=== PATIENT | female | born 1990 | race Caucasian/White ===

== ENCOUNTER → 2017-05-27 | Outpatient (CLI) | payer BC ==
[~2017-05-27] MED LIST: PERC5TAB6 PO
== END ==
LOC: M SMT 08:57
PROVIDERS: ATTEND Advanced Practice Midwife
DX: Z13.79 Encounter for other screening for genetic and chromosomal anomalies (principal)

== ENCOUNTER → 2017-07-01 | Outpatient (CLI) | payer BC ==
[~2017-07-01] MED LIST changes: +PERC5TAB12 PO; -PERC5TAB6 PO
--- NOTE | 2017-07-02 06:29 | REP ---
Clinical: Anatomical evaluation. Comparison: None . Findings: Examination demonstrates a single live intrauterine in breech presentation. motion is identified by technologist. Placenta is noted posterior and grade air zero without evidence for placenta previa or abruption. Amniotic fluid volume is normal. Cervix measures 3.9 cm in length and appears closed. No evidence for nuchal cord. Gestational age by LMP 19 weeks 6 days with IRINA 11/19/2017 . Gestational age by current measurements 19 weeks 4 days with IRINA 11/21/2017 . FHR equals 153 beats per minute. BPD 4.6 20 weeks 0 days HC 16.7 19 weeks 0 days AC 14.4 19 weeks 5 days FL 3.2 20 weeks 1 day HL 3.2 20 weeks 4 days HC/AC ratio 1.16 Estimated weight 317 grams ( 45th percentile). Anatomical assessment demonstrates normal structures including cranium, choroid plexus, cavum, cerebellum/posterior fossa, nose and lips, lungs, diaphragm, stomach, cord insertion/three-vessel cord, kidneys/bladder, spine, and upper extremities. Limited evaluation of the facial profile, heart/ventricular outflow tracts and small bilateral choroid plexus cysts noted. Impression: Single live intrauterine in breech presentation demonstrating appropriate interval growth. Anatomical limitations as described above. Otherwise unremarkable examination. Signed by Jose Jones MD 07/02/2017 06:21 A
== END ==
LOC: M SMT 12:55
PROVIDERS: ATTEND Advanced Practice Midwife
DX: Z36 Encounter for antenatal screening of mother (principal); Z3A.19 19 weeks gestation of pregnancy

== ENCOUNTER → 2017-08-05 | Outpatient (CLI) | payer BC ==
--- NOTE | 2017-08-05 15:30 | REP ---
Clinical: Anatomical re-evaluation. Comparison: 07/01/2017 . Findings: Examination demonstrates a single live intrauterine in breech presentation. motion is identified by technologist. Placenta is noted posteriorly and grade I without evidence for placenta previa or abruption. Amniotic fluid volume is normal. Cervix measures 4.0 cm in length and appears closed. Nuchal cord is appreciated. Gestational age by LMP 24 weeks 6 days with IRINA 11/19/2017 . Gestational age by current measurements 24 weeks 3 days with IRINA 11/22/2017 . FHR equals 147 beats per minute. Estimated weight 748 grams (44th percentile). Anatomical assessment demonstrates normal structures including cranium, choroid plexus, cavum, cerebellum/posterior fossa, facial features, lungs, four-chamber heart/ventricular outflow tracts, diaphragm, stomach, cord insertion/three-vessel cord, kidneys/bladder, spine, and extremities. Impression: Single live intrauterine in breech presentation demonstrating appropriate interval growth. Nuchal cord noted. Anatomical assessment is complete and normal. Signed by Jose Jones MD 08/05/2017 03:21 P
== END ==
LOC: M SMT 14:17
PROVIDERS: ATTEND Advanced Practice Midwife
DX: Z36 Encounter for antenatal screening of mother (principal); Z3A.24 24 weeks gestation of pregnancy

== ENCOUNTER → 2017-08-26 | Outpatient (CLI) | payer BC ==
[2017-08-26 13:55] LABS: MEAN CORPUSCULAR HEMOGLOBIN 29.9 pg (27.0-33.0); MEAN CORPUSCULAR HGB CONC 32.2 g/dl (32.0-36.5); MEAN CORPUSCULAR VOLUME 92.6 fl (80.0-96.0); RED CELL DISTRIBUTION WIDTH 12.1 % (11.5-14.5); WHITE BLOOD COUNT 10.6 10^3/uL (4.0-10.0)
== END ==
LOC: M SMT 09:54
PROVIDERS: ATTEND Advanced Practice Midwife
DX: Z34.82 Encounter for supervision of other normal pregnancy, second trimester (principal)

== ENCOUNTER → 2017-09-17 | Outpatient (CLI) | payer BC ==
--- NOTE | 2017-09-18 07:54 | REP ---
Clinical: Size less than dates . Comparison: 08/05/2017 . Findings: Examination demonstrates a single live intrauterine in cephalic presentation. motion is identified by technologist. Placenta is noted posterior left lateral and grade zero without evidence for placenta previa or abruption. Amniotic fluid volume is normal. Cervix measures 3.2 cm in length and appears closed. No evidence for nuchal cord. Gestational age by LMP 31 weeks 0 days with IRINA 11/19/2017 . Gestational age by current measurements 29 weeks 0 days with IRINA 12/03/2017 . FHR equals 141 beats per minute. BPD 7.3 cm 29 weeks 1 day HC 26.4 cm 28 weeks 5 days AC 25.1 cm 29 weeks 2 days FL 5.8 cm 30 weeks 1 day HL 5.2 cm 30 weeks 2 days HC/AC ratio 1.05 Estimated weight 1405 grams ( 12th percentile). New line amniotic fluid index equals 8.6 cm (8.8 - 23.8). Impression: 1. Single live intrauterine in cephalic presentation. 2. Amniotic fluid volume is lower limits of normal. 3. Gross is mildly less than expected although falls within normal range. Signed by Jose Jones MD 09/18/2017 07:46 A
== END ==
LOC: M SMT 09:18
PROVIDERS: ATTEND Specialist
DX: O36.5931 Maternal care for other known or suspected poor fetal growth, third trimester, fetus 1 (principal); Z3A.29 29 weeks gestation of pregnancy

== ENCOUNTER → 2017-10-14 | Outpatient (CLI) | payer BC ==
--- NOTE | 2017-10-14 16:47 | REP ---
Clinical: Growth re-evaluation. Comparison: 09/17/2017 . Findings: Examination demonstrates a single live intrauterine in cephalic presentation. motion is identified by technologist. Placenta is noted posterior left lateral and grade I without evidence for placenta previa or abruption. Amniotic fluid volume is low normal. Cervix measures 2.6 cm in length and appears closed. No evidence for nuchal cord. Gestational age by LMP 34 weeks 6 days with IRINA 11/19/2017 . Gestational age by current measurements 31 weeks 3 days with IRINA 12/13/2017. FHR equals 145 beats per minute. BPD 7.8 cm 31 weeks 3 days HC 27.8 cm 30 weeks 2 days AC 26.8 cm 30 weeks 6 days FL 6.3 cm 32 weeks 3 days HL 5.6 cm 32 weeks 3 days HC/AC ratio 1.04 Estimated weight 1746 grams (less than 3rd percentile). Amniotic fluid index equals 6.3 cm (7.9 - 24.9). Umbilical cord SD ratio equals 2.51 (2.00 - 3.00). Impression: 1. Single live advanced gestation in cephalic presentation. Estimated weight and age by biometrical measurements is less than expected and requires clinical correlation. 2. Amniotic fluid volume is lower limits of normal. Signed by Jose Jones MD 10/14/2017 04:39 P
== END ==
LOC: M RAD 15:05
PROVIDERS: ATTEND Obstetrics & Gynecology
DX: Z36.89 Encounter for other specified antenatal screening (principal); Z3A.31 31 weeks gestation of pregnancy

== ENCOUNTER → 2017-10-21 | Outpatient (REF) | payer BC ==
[~2017-10-21] MED LIST changes: +CLEO1GEL TOP; +ERYT2SO TOP; +PRENTAB9 PO; +[UNRECOGNIZED DRUG - OTHER] TOP
== END ==
LOC: M LAB REF 17:09
PROVIDERS: ATTEND Obstetrics & Gynecology
DX: Z34.83 Encounter for supervision of other normal pregnancy, third trimester (principal); Z3A.00 Weeks of gestation of pregnancy not specified

== ENCOUNTER 2017-10-24 07:07 | Outpatient (CLI) | payer BC ==
[~2017-10-24] VITALS: Ht 162.6 cm; Wt 63.8 kg
[~2017-10-24 07:07] MED LIST changes: -CLEO1GEL TOP; -ERYT2SO TOP; -PRENTAB9 PO; -[UNRECOGNIZED DRUG - OTHER] TOP
[2017-10-24 07:23] VITALS: BP 110/72
[2017-10-24 09:14] VITALS: BP 111/65
--- NOTE | 2017-10-24 09:26 | REP ---
Clinical: well-being. Biophysical profile. . Comparison: 10/14/2017 . Findings: Examination demonstrates a single live advanced intrauterine in cephalic presentation. motion is identified by technologist. Placenta is noted posterior lateral towards the left side and grade III without evidence for placenta previa or abruption. Amniotic fluid volume is normal. No evidence for nuchal cord. Gestational age by LMP 36 weeks 2 days with IRINA 11/19/2017 . Gestational age by first US 36 weeks 0 days with IRINA 11/21/2017 . FHR equals 131 beats per minute. BPP equals 8/8. Amniotic fluid index equals 7.2 cm (7.6 724.8). Umbilical cord SD ratio equals 2.85 (1.8 - 2.8). Impression: Single live intrauterine in cephalic presentation. Biophysical profile score equals 8/8. Amniotic fluid index is lower limits of normal. Signed by Jose Jones MD 10/24/2017 09:16 A
[2017-10-24] MEDS ORDERED: BETAMETHASONE SOLUSPAN 6MG/ML INJ 5ML (J0702) IM SCH (10:00)
[2017-10-25] MEDS ORDERED: PRENTAB9 PO (10:27)
== END 2017-10-24 10:00 | disposition home or self-care (01) ==
LOC: M LDO 07:07
PROVIDERS: ATTEND Advanced Practice Midwife
DX: O36.5931 Maternal care for other known or suspected poor fetal growth, third trimester, fetus 1 (principal); Z3A.36 36 weeks gestation of pregnancy
CPT/HCPCS: 59025; 76815; 76819; 76820; 96372; J0702

== ENCOUNTER 2017-10-25 10:08 | Outpatient (CLI) | payer BC ==
[~2017-10-25] VITALS: Ht 162.6 cm; Wt 63.3 kg
[2017-10-25 10:22] VITALS: BP 120/75
[2017-10-25] MEDS ORDERED: PRENTAB9 PO (10:27)
[2017-10-25] MEDS ORDERED: BETAMETHASONE SOLUSPAN 6MG/ML INJ 5ML (J0702) IM SCH (11:00)
== END 2017-10-25 10:55 | disposition home or self-care (01) ==
LOC: M LDO 10:08
PROVIDERS: ATTEND Advanced Practice Midwife
DX: O26.893 Other specified pregnancy related conditions, third trimester (principal); O62.0 Primary inadequate contractions; O26.853 Spotting complicating pregnancy, third trimester; Z3A.36 36 weeks gestation of pregnancy
CPT/HCPCS: 96372; J0702

== ENCOUNTER 2017-10-29 07:19 | Inpatient (IN) | payer BC ==
[2017-10-29] VITALS (39 sets, daily range): BP systolic 89–132; BP diastolic 54–84
[~2017-10-29] VITALS: Ht 162.6 cm; Wt 63.8 kg
[~2017-10-29 07:19] MED LIST changes: +PRENTAB9 PO
[2017-10-29] MEDS ORDERED: CLEO1GEL TOP (08:00)
[2017-10-29 08:33] LABS: MEAN CORPUSCULAR HEMOGLOBIN 30.3 pg (27.0-33.0); MEAN CORPUSCULAR HGB CONC 33.7 g/dl (32.0-36.5); MEAN CORPUSCULAR VOLUME 89.8 fl (80.0-96.0); PLATELET COUNT, AUTOMATED 317 10^3/uL (150-450); RED CELL DISTRIBUTION WIDTH 12.4 % (11.5-14.5); WHITE BLOOD COUNT 13.7 10^3/uL (4.0-10.0)
[2017-10-29] MEDS ORDERED: miSOPROStol 50 MCG 1/2 TAB (S0191) PO SCH (09:00)
[2017-10-29] MEDS ORDERED: miSOPROStol 50 MCG 1/2 TAB (S0191) SL SCH (09:00)
[2017-10-29] MEDS ORDERED: [UNRECOGNIZED DRUG - OTHER] TOP (09:22)
[2017-10-29] MEDS ORDERED: ERYT2SO TOP (09:26)
--- NOTE | 2017-10-29 09:31 | HPE ---
DATE OF ADMISSION: 10/29/2017 HISTORY: 26-year-old, (G) 1, para (P) 0, female at 37 and 0/7 weeks gestation by last menstrual period (LMP), consistent with 10 week ultrasound and expected date of confinement (EDC) of 11/19/2017 who presents for labor induction. The indication for induction is severe intrauterine growth retardation (IUGR) with borderline oligohydramnios. COURSE: The patient initiated care at 10 weeks gestation on 04/29/2017. Her blood pressure was 132/70. Weight was 120 pounds. She had a growth ultrasound for size less than dates on 09/17/2017 when she was 31 weeks gestation. She was at the 12th percentile by ultrasound measurement. Followup ultrasound for growth on 10/14/2017 at 34 weeks showed growth less than 3rd percentile. The amniotic fluid volume was 6.3. testing was reassuring. The patient received steroids for lung maturity at 36 weeks. MEDICAL HISTORY: Noncontributory. SURGICAL HISTORY: 1. Diagnostic laparoscopy for endometriosis. 2. No surgery. ALLERGIES: None. SOCIAL HISTORY: The patient is . She denies cigarettes, alcohol or drug use. Lives in [place], [place]. FAMILY HISTORY: The father of the baby has been diagnosed with MPS disorder which is an autosomal recessive disorder associated with glycogen storage disease. PHYSICAL EXAMINATION: Blood pressure 120/74. She is in no apparent distress. Head and Neck Exam: Normal. Lungs: Clear. Heart: Regular rate and rhythm. Abdomen: Nontender. Gravid. heart tones Category 1. Contractions rare. Sterile Vaginal Exam: 1 cm, 70% effaced, -2 station, vertex, soft, posterior. Extremities: Nontender with trace edema. LABORATORIES: Blood type A positive. Rubella immune. RPR nonreactive. Hepatitis B and C negative. Diabetes screen 117. GBS negative. ASSESSMENT: 26-year-old, G1, P0, at 37 and 0/7 weeks gestation with severe IUGR and borderline oligohydramnios who presents for labor induction. Risks of induction were discussed. Patient was admitted on 10/29/2017.
[2017-10-29] MEDS ORDERED: LR 1,000 ML IV SCH (13:44)
[2017-10-29] MEDS ORDERED: OXYTOCIN DRIP 30 UNITS in APPROPRIATE DILUENT 1 EA IV SCH (13:45)
[2017-10-29] MEDS ORDERED: FENTANYL 2MCG/ML ROPIVACAINE 0.2% IN 0.9% NACL 200ML IVBAG As Ordered ONE (21:24)
[2017-10-29] MEDS ORDERED: NALOXONE INJ 0.4 MG/1 ML VIAL (J2310) IV PRN (22:45)
[2017-10-29] MEDS ORDERED: REFRIGERATOR IV KEYS XX PRN (22:45)
[2017-10-29] MEDS ORDERED: diphenhydrAMINE INJ 50MG/ML VIAL (J1200) IV PRN (22:45)
[2017-10-29] MEDS ORDERED: ePHEDrine SULFATE 25 MG/5 ML(5MG/ML) SYRINGE IV PRN (22:45)
[2017-10-29] MEDS ORDERED: EPIDURAL COMMENT XX SCH (22:45)
[2017-10-29] MEDS ORDERED: ONDANSETRON 4MG/2ML VIAL (J2405) IV PRN (22:45)
[2017-10-29] MEDS ORDERED: EPIDURAL/PCA KEYS XX PRN (22:45)
[2017-10-29] MEDS ORDERED: LACTATED RINGER'S 1000 ML IV PRN (22:45)
[2017-10-29] MEDS ORDERED: FENTANYL/ROPIVACAINE/NACL BAG 200 ML EPIDURAL SCH (22:45)
[2017-10-30] VITALS (19 sets, daily range): BP systolic 104–139; BP diastolic 60–85
[2017-10-30] MEDS ORDERED: METHYLERGONOVINE MALEATE 0.2 MG/ML VIAL (J2210) As Ordered ONE (05:30)
[2017-10-30] MEDS ORDERED: DOCUSATE SODIUM 100 MG CAP PO PRN (06:15)
[2017-10-30] MEDS ORDERED: miSOPROStol 200 MCG TAB (S0191) PR ONE (06:15)
[2017-10-30] MEDS ORDERED: ACETAMINOPHEN 500 MG TAB PO PRN (06:15)
[2017-10-30] MEDS ORDERED: RHOGAM 300 MCG (1500 IU) INJ (J2790) IM SCH (06:15)
[2017-10-30] MEDS ORDERED: MEASLES,MUMPS,RUBELLA VACCINE INJ (MMR-II) (90707) SC SCH (06:15)
[2017-10-30] MEDS ORDERED: DIBUCAINE 1% OINTMENT 30GM TOP PRN (06:15)
[2017-10-30] MEDS ORDERED: ONDANSETRON 4MG/2ML VIAL (J2405) IV PRN (06:15)
[2017-10-30] MEDS ORDERED: METHYLERGONOVINE MALEATE 0.2 MG TAB PO PRN (06:15)
[2017-10-30] MEDS ORDERED: OXYTOCIN DRIP 30 UNITS in APPROPRIATE DILUENT 1 EA IV ONE (06:15)
[2017-10-30] MEDS ORDERED: METHYLERGONOVINE MALEATE 0.2 MG/ML VIAL (J2210) IM ONE (07:00)
[2017-10-30] MEDS: IBUPROFEN 800 MG TAB PO PRN ×2 (07:20→16:10)
[2017-10-30] MEDS: PRENATAL VITAMINS CHEWABLE TABLET PO SCH (07:20)
[2017-10-30] MEDS ORDERED: PERCOCET 5MG/325MG TAB PO PRN (09:15)
--- NOTE | 2017-10-30 09:20 | DN ---
DATE: 10/30/2017 PREDELIVERY DIAGNOSIS: 37 weeks intrauterine growth restriction (IUGR). POSTDELIVERY DIAGNOSIS: Delivered. PROCEDURE: Spontaneous vaginal delivery. ELEMENTARY LIBRARIAN: Dr. Jhonathan Booker. ANESTHESIA: Epidural. ESTIMATED BLOOD LOSS: 500 mL. FINDINGS: 4 pounds 10 ounces female, scores 8 and 9. DELIVERY SUMMARY: After 15-20 minutes second stage, the patient had spontaneously delivery of a 4 pound 10 ounce female with scores of 8 and 9 under epidural anesthesia. There was no nuchal cord. The cried instantly and was handed to the mother. Cord was doubly clamped and cut. Placenta delivered spontaneously and appeared to be intact. Moderate vaginal atrophy was encountered. This was relived with intravenous (IV) Pitocin, fundal massage, as well as one dose of intramuscular (IM) Methergine at 800 mcg and Cytotec per rectum. Retractor was used to visualize the upper vagina and cervix to check for any lacerations or bleeding sites that may have missed. Bleeding improved over time. A first-degree perineal laceration was repaired with 3-0 chromic in the usual fashion. First-degree left labial laceration was repaired with 3-0 chromic. Sponge and needle counts were correct.
[2017-10-30] MEDS: PERCOCET 5MG/325MG TAB PO PRN ×2 (12:52→18:26)
[2017-10-31 06:00] VITALS: BP 119/72
[2017-10-31] MEDS: PRENATAL VITAMINS CHEWABLE TABLET PO SCH (07:46)
[2017-10-31] MEDS: IBUPROFEN 800 MG TAB PO PRN ×2 (13:19→22:20)
[2017-10-31 18:26] VITALS: BP 123/71
[2017-11-01 06:02] VITALS: BP 107/57
[2017-11-01] MEDS: IBUPROFEN 800 MG TAB PO PRN (06:30)
[2017-11-01] MEDS: PRENATAL VITAMINS CHEWABLE TABLET PO SCH (08:46)
[2017-11-01] MEDS ORDERED: COLA100C5 PO (10:04)
[2017-11-01] MEDS ORDERED: IBUP-1114 PO (10:04)
== END 2017-11-01 12:10 | disposition home or self-care (01) | DRG 560 ==
LOC: M LDI 07:19 → M OBS 10-30 09:35
PROVIDERS: ADMIT Obstetrics & Gynecology; ATTEND Obstetrics & Gynecology
PROC: 3E0DXGC Introduction of Other Therapeutic Substance into Mouth and Pharynx, External Approach (ICD-10-PCS; 2017-10-29)
PROC: 10E0XZZ Delivery of Products of Conception, External Approach (ICD-10-PCS; principal; 2017-10-30)
PROC: 0HQ9XZZ Repair Perineum Skin, External Approach (ICD-10-PCS; 2017-10-30)
DX: O41.03X0 Oligohydramnios, third trimester, not applicable or unspecified (principal); O36.5930 Maternal care for other known or suspected poor fetal growth, third trimester, not applicable or unspecified; Z37.0 Single live birth; Z3A.37 37 weeks gestation of pregnancy; O70.0 First degree perineal laceration during delivery

== ENCOUNTER → 2018-08-24 | Outpatient (CLI) | payer BC ==
[2018-08-24 17:49] LABS: BASO # 0.1 10^3/uL (0.0-0.2); BASO % 0.9 % (0.0-1.0); EOS # 0.5 10^3/uL (0.0-0.50); EOS % 4.7 % (0.0-3.0); HEMATOCRIT 40.2 % (36.0-47.0); HEMOGLOBIN 13.2 g/dl (12.0-15.5); IMMATURE GRANULOCYTE % 0.3 % (0-3.0); LYMPH # 1.3 10^3/uL (1.5-6.5); LYMPH % 14.1 % (24.0-44.0); MEAN CORPUSCULAR HEMOGLOBIN 29.1 pg (27.0-33.0); MEAN CORPUSCULAR HGB CONC 32.8 g/dl (32.0-36.5); MEAN CORPUSCULAR VOLUME 88.5 fl (80.0-96.0); MONO # 0.5 10^3/uL (0.0-0.8); MONO % 4.8 % (0.0-5.0); NEUTROPHILS # 7.2 10^3/uL (1.8-7.7); NEUTROPHILS % 75.2 % (36.0-66.0); PLATELET COUNT, AUTOMATED 342 10^3/uL (150-450); RED BLOOD COUNT 4.54 10^6/uL (4.00-5.40); RED CELL DISTRIBUTION WIDTH 12.4 % (11.5-14.5); WHITE BLOOD COUNT 9.5 10^3/uL (4.0-10.0)
[2018-08-24 20:38] LABS: CHLAMYDIA DNA AMPLIFICATION NEGATIVE (NEGATIVE); GC DNA AMPLIFICATION NEGATIVE (NEGATIVE)
[2018-08-26 10:15] LABS: HBsAg Prenatal NEGATIVE (NEGATIVE); HIV 1&2 SCREEN CENTAUR NEGATIVE (NEGATIVE); RUBELLA IgG QUALITATIVE IMMUNE (IMMUNE)
[2018-08-26 10:15] LABS: HEPATITIS C VIRUS ABY INDEX 0.2 INDEX (<0.8)
== END ==
LOC: M SMT 11:47
DX: Z34.81 Encounter for supervision of other normal pregnancy, first trimester (principal); Z3A.12 12 weeks gestation of pregnancy
CPT/HCPCS: 86762

== ENCOUNTER → 2018-10-26 | Outpatient (CLI) | payer BC | LOC: M SMT 10:46 | DX: Z34.82 Encounter for supervision of other normal pregnancy, second trimester (principal); Z3A.21 21 weeks gestation of pregnancy | CPT/HCPCS: 76811 ==

== ENCOUNTER → 2018-12-07 | Outpatient (CLI) | payer BC ==
[~2018-12-07] MED LIST changes: +CLEO1GEL TOP; +COLA100C5 PO; +ERYT2SO TOP; +IBUP-1114 PO; +[UNRECOGNIZED DRUG - OTHER] TOP
[2018-12-07 18:54] LABS: HEMATOCRIT 35.3 % (36.0-47.0); HEMOGLOBIN 11.2 g/dl (12.0-15.5); MEAN CORPUSCULAR HEMOGLOBIN 29.6 pg (27.0-33.0); MEAN CORPUSCULAR HGB CONC 31.7 g/dl (32.0-36.5); MEAN CORPUSCULAR VOLUME 93.1 fl (80.0-96.0); PLATELET COUNT, AUTOMATED 305 10^3/uL (150-450); RED BLOOD COUNT 3.79 10^6/uL (4.00-5.40)
--- NOTE | 2018-12-08 03:43 | REP ---
Clinical: Anatomical evaluation. Comparison: 10/26/2018 . Findings: Examination demonstrates a single live intrauterine in cephalic presentation. motion is identified by technologist. Placenta is noted anterior and grade grade 1 without evidence for placenta previa or abruption. Amniotic fluid volume is normal. Cervix measures 4.8 cm in length and appears closed. No evidence for nuchal cord. Gestational age by LMP 27 weeks 4 days with IRINA 03/04/2019 . Gestational age by current measurements 25 weeks 2 days with IRINA 03/20/2019 . FHR equals 139 beats per minute. Estimated weight 860 grams ( 45th percentile). Anatomical assessment demonstrates normal structures including cranium, choroid plexus, cavum, cerebellum/posterior fossa, facial features, lungs, four-chamber heart/ventricular outflow tracts, diaphragm, stomach, cord insertion/three-vessel cord, kidneys/bladder, spine, and extremities. Impression: Single live intrauterine in cephalic presentation demonstrating appropriate interval growth. Anatomical assessment is complete and normal. Electronically Signed by Jose Jones MD 12/08/2018 03:34 A
== END ==
LOC: M SMT 11:00
PROVIDERS: ATTEND Advanced Practice Midwife
DX: Z36.9 Encounter for antenatal screening, unspecified (principal); Z3A.25 25 weeks gestation of pregnancy

== ENCOUNTER → 2019-01-18 | Outpatient (CLI) | payer BC ==
--- NOTE | 2019-01-19 08:26 | REP ---
Clinical: Growth evaluation. Comparison: 12/07/2018 . Findings: Examination demonstrates a single live intrauterine in cephalic presentation. motion is identified by technologist. Placenta is noted posterior and grade grade 1 without evidence for placenta previa or abruption. Amniotic fluid volume is normal. Cervix measures 4.1 cm in length and appears closed. Nuchal cord cannot be excluded. Gestational age by first US 31 weeks 6 day with IRINA is 03/16/2019 . Gestational age by current measurements 30 weeks 3 days with IRINA 03/26/2019 . FHR equals 147 beats per minute. BPD 7.7 cm 30 weeks 5 days HC 28.1 cm 30 weeks 6 days AC 26.3 cm 30 weeks 3 days FL 5.9 cm 30 weeks 6 days HL 5.2 cm 30 weeks 1 day HC/AC ratio 1.07 Estimated weight 1610 grams ( 20th percentile based on age by first ultrasound ). Amniotic fluid index: 8.5 cm (8.6 - 24.1) Umbilical cord SD ratio: 3.10 (2.50 - 3.50) Impression: 1. Single live intrauterine in cephalic presentation demonstrating appropriate interval growth compared to first ultrasound. 2. Nuchal cord cannot be excluded. 3. Amniotic fluid volume is lower limits of normal range. Electronically Signed by Jose Jones MD 01/19/2019 08:17 A
== END ==
LOC: M SMT 12:38
PROVIDERS: ATTEND Specialist
DX: O26.843 Uterine size-date discrepancy, third trimester (principal); O36.5922 Maternal care for other known or suspected poor fetal growth, second trimester, fetus 2; Z3A.30 30 weeks gestation of pregnancy

== ENCOUNTER → 2019-01-21 | Outpatient (CLI) | payer BC ==
--- NOTE | 2019-01-21 13:51 | REP ---
PA and lateral chest: There are no comparisons. The lung medina are clear. The cardiac size is normal. The sondra, mediastinum, and skeletal structures are unremarkable. Impression: Negative PA and lateral chest. Electronically Signed by Dakota Overton MD 01/21/2019 01:43 P
[2019-01-21 15:55] LABS: INFLUENZA A AMPLIFICATION POSITIVE (NEGATIVE); INFLUENZA B AMPLIFICATION NEGATIVE (NEGATIVE)
== END ==
LOC: M SMT 13:16
PROVIDERS: ATTEND Advanced Practice Midwife
DX: R05 Cough (principal); R50.9 Fever, unspecified

== ENCOUNTER → 2019-01-27 | Outpatient (CLI) | payer BC ==
[~2019-01-27] MED LIST changes: +IRON325T7 PO; +PROB250C PO; +VITA1TAB9 PO
--- NOTE | 2019-01-27 12:18 | REP ---
Clinical: well-being Comparison: 01/21/2019 . Findings: Examination demonstrates a single live intrauterine in cephalic presentation. motion is identified by technologist. Placenta is noted posterior and grade grade 1 without evidence for placenta previa or abruption. Amniotic fluid volume is normal. Cervix measures 3.5 cm in length and appears closed. Nuchal cord cannot be excluded. Gestational age by LMP 34 weeks 6 days with IRINA 03/04/2019 . Gestational age by first ultrasound 33 weeks 1 day with IRINA 03/16/2019 . FHR equals 144 beats per minute. Biophysical profile score: 8/8 Amniotic fluid index: 8.2 cm (8.3 - 24.5) Umbilical cord SD ratio: 3.34 Impression: Single live intrauterine in cephalic presentation. Biophysical profile score is 8/8 Nuchal cord cannot be excluded. Amniotic fluid volume is lower limits of normal level. Electronically Signed by Jose Jones MD 01/27/2019 12:09 P
== END ==
LOC: M SMT 10:50
PROVIDERS: ATTEND Advanced Practice Midwife
DX: O36.5930 Maternal care for other known or suspected poor fetal growth, third trimester, not applicable or unspecified (principal)

== ENCOUNTER 2019-01-29 11:24 | Outpatient (CLI) | payer BC ==
[~2019-01-29] VITALS: Ht 162.6 cm; Wt 64.4 kg
[~2019-01-29 11:24] MED LIST changes: -IRON325T7 PO; -PROB250C PO; -VITA1TAB9 PO
[2019-01-29 11:32] VITALS: BP 119/64
[2019-01-29] MEDS ORDERED: BETAMETHASONE SOLUSPAN 6MG/ML INJ 5ML (J0702) IM ONE (11:45)
--- NOTE | 2019-01-29 13:30 | IPNPDOC ---
Text Note Date of Service The patient was seen on 01/29/19. NOTE Outpatient 28yo IRINA 03/04/19. Presents @ 35w1d per orders Dr Snow for Betamethasone injections. Current complicated by IUGR <3%. Hx significant for IUGR previous , 10/2017, 4#10 @ 37wks NST reactive in office today. VSS. Betamethasone ordered per Dr Snow. Pt to return for injection #2 tomorrow. Scheduled for f/u appt and sono on 02/01. IOL 02/02 Elizabeth Worthy CNM Jan 29, 2019 11:38
== END 2019-01-29 12:10 | disposition home or self-care (01) ==
LOC: M LDO 11:24
PROVIDERS: ATTEND Advanced Practice Midwife
DX: O36.5930 Maternal care for other known or suspected poor fetal growth, third trimester, not applicable or unspecified (principal); Z3A.35 35 weeks gestation of pregnancy
CPT/HCPCS: 96372; G0378; G0463; J0702

== ENCOUNTER → 2019-01-29 | Outpatient (REF) | payer BC | LOC: M LAB REF 17:18 | PROVIDERS: ATTEND Obstetrics & Gynecology | DX: O36.5930 Maternal care for other known or suspected poor fetal growth, third trimester, not applicable or unspecified (principal); Z3A.00 Weeks of gestation of pregnancy not specified ==

== ENCOUNTER 2019-01-30 12:10 | Outpatient (CLI) | payer BC ==
[~2019-01-30] VITALS: Ht 162.6 cm; Wt 64.1 kg
[2019-01-30 12:36] VITALS: BP 114/70
[2019-01-30] MEDS ORDERED: BETAMETHASONE SOLUSPAN 6MG/ML INJ 5ML (J0702) IM ONE (13:00)
== END 2019-01-30 12:50 | disposition home or self-care (01) ==
LOC: M LDO 12:10
PROVIDERS: ATTEND Obstetrics & Gynecology
DX: Z34.83 Encounter for supervision of other normal pregnancy, third trimester (principal); Z3A.00 Weeks of gestation of pregnancy not specified
CPT/HCPCS: 96372; G0378; G0463; J0702

== ENCOUNTER → 2019-02-01 | Outpatient (CLI) | payer BC ==
[~2019-02-01] MED LIST changes: +IRON325T7 PO; +MAPA500T2 PO; +PROB250C PO; +VITA1TAB9 PO
--- NOTE | 2019-02-01 19:16 | REP ---
Clinical: well-being Comparison: 01/27/2019 . Findings: Examination demonstrates a single live intrauterine in cephalic presentation. motion is identified by technologist. Placenta is noted posterior and grade grade II without evidence for placenta previa or abruption. Amniotic fluid volume is normal. Nuchal cord cannot be excluded. Gestational age by LMP 35 weeks 4 days with IRINA 03/04/2019 . Gestational age by current measurements 31 weeks 4-day with IRINA 04/01/2019 . FHR equals 141 beats per minute. BPD 7.9 cm 31 weeks 4 days HC 29.1cm 32 weeks 0-day AC 28.8 cm 32 weeks 6 days FL 6.1 cm 31 weeks 5 days HC/AC ratio 1.01 Estimated weight 1939 grams ( less than 3rd percentile based on age by LMP). Biophysical profile score: 6/8 (breathing - 0) Amniotic fluid index: 9.4 cm (7.8 - 24.9). Umbilical cord SD ratio: 3.49 (2.00 - 3.00). Impression: 1. Single live intrauterine in cephalic presentation demonstrating less than expected growth. 2. Nuchal cord cannot be excluded. 3. BPP: 6/8 ( breathing 0, tone 2, movement 2, AFV 2) Electronically Signed by Jose Jones MD 02/01/2019 07:08 P
== END ==
LOC: M SMT 13:06
PROVIDERS: ATTEND Advanced Practice Midwife
DX: O36.5930 Maternal care for other known or suspected poor fetal growth, third trimester, not applicable or unspecified (principal); Z3A.35 35 weeks gestation of pregnancy

== ENCOUNTER 2019-02-02 06:55 | Inpatient (IN) | payer BC ==
[2019-02-02] VITALS (46 sets, daily range): BP systolic 91–124; BP diastolic 51–99
[~2019-02-02] VITALS: Ht 162.6 cm; Wt 66.0 kg
[~2019-02-02 06:55] MED LIST changes: -IRON325T7 PO; -MAPA500T2 PO; -PROB250C PO; -VITA1TAB9 PO
[2019-02-02] MEDS ORDERED: PROB250C PO (09:34)
[2019-02-02] MEDS ORDERED: IRON325T7 PO (09:34)
[2019-02-02] MEDS ORDERED: VITA1TAB9 PO (09:34)
[2019-02-02] MEDS ORDERED: PENICILLIN G POTASSIUM IV 5 MU in D5W MINI-BAG PLUS 100 ML IV STA (09:39)
[2019-02-02] MEDS ORDERED: LACTATED RINGER'S 1000 ML IV STA (09:39)
[2019-02-02] MEDS ORDERED: OXYTOCIN DRIP 30 UNITS in APPROPRIATE DILUENT 1 EA IV SCH (09:45)
--- NOTE | 2019-02-02 09:48 | NUR ---
L&D H&P HPI: 28 year old at 35+5 weeks estimated gestation. Expected date of confinement: 03/04/19. dated by LMP c/w first TM US. Presents today for IOL secondary to severe growth restriction (<3rd percentile). Denies vaginal bleeding, loss of fluid, or uterine contractions. Reports regular movement. course complicated by: 1. Severe growth restriction; less than 3rd percentile (4lbs 4oz, 1938g). Elevated S/D ratio. -07/10 US BPP yesterday. Borderline AFV, but most recent assessment wnl. Completed course of betamethasone. 2. History of severe growth restriction in previous 3. Influenza A dx on 01/22/19; treated with Tamiflu, which was completed on 01/26 labs: Blood type AB+, antibody screen negative, rubella immune, VDRL nonreactive , hepatitis B surface antigen negative, HIV negative, hepatitis C antibody negative, GC/CT negative, aneuploidy/maternal serum screening: declined; unknown, 1 hour glucose challenge test: 95, GBS pending Vaccinations: Flu vaccine 09/21/18 Radiology/OB US: no anomalies or placental abnormalities detected. History Past medical history: CPP/endometriosis Surgical history: laparoscopy (CPP/endometriosis) Medications: PNV Allergies: NKDA RAW SAMPLER history: Endometriosis, no STI/gHSV OB history: G1, Oct 2017 37 weeks , FGR, IOL/. 4lbs 10oz. Social history: no t/e/d Family history: no MR, VTE Objective Vitals: Normotensive, normal heart rate, afebrile Heart: Regular rate and rhythm. No murmurs, rubs or gallops. Lungs: Clear to auscultation bilaterally. No wheezes, crackles, rales or rhonchi. Abdomen: Uterine fundal height consistent with dates. No guarding or rebound tenderness. Extremities: No clubbing, cyanosis or edema. Normal deep tendon reflexes. Sterile vaginal exam: 2 cm, 50 %effacement, -3 station, cephalic, intact External monitoring: heart rate category 1 Tocodynamometer: contractions not present. Assessment/Plan 28 year old at 37+0 weeks gestation. Diagnosis: severe growth restriction, corticosteroid course complete. Reassuring and maternal status. -Admit to labor and delivery with routine labs and orders -External monitoring and tocodynamometer -Pediatrics and anesthesia consultations as needed. -GBS unknown; treat with PPx PCN for now. -IOL with Pitocin; Cook balloon if unchanged after 4-[address] Willie Snow, DO, FACOG
[2019-02-02 10:07] LABS: HEMATOCRIT 32.3 % (36.0-47.0); HEMOGLOBIN 10.7 g/dl (12.0-15.5); MEAN CORPUSCULAR HEMOGLOBIN 29.6 pg (27.0-33.0); MEAN CORPUSCULAR HGB CONC 33.1 g/dl (32.0-36.5); MEAN CORPUSCULAR VOLUME 89.2 fl (80.0-96.0); PLATELET COUNT, AUTOMATED 370 10^3/uL (150-450); RED BLOOD COUNT 3.62 10^6/uL (4.00-5.40); WHITE BLOOD COUNT 12.3 10^3/uL (4.0-10.0)
[2019-02-02] MEDS: LR 1,000 ML IV SCH ×2 (11:41→19:25)
[2019-02-02] MEDS ORDERED: FENTANYL 2MCG/ML ROPIVACAINE 0.2% IN 0.9% NACL 100ML IVBAG As Ordered ONE (15:11)
[2019-02-02] MEDS: PENICILLIN G POTASSIUM IV 2.5 MU in APPROPRIATE DILUENT 1 EA IV SCH ×3 (15:16→23:00)
--- NOTE | 2019-02-02 16:34 | NUR ---
Progress Note Pt recently had epidural placed. Very comfortable. No LOF/VB. No PICHARDO, sob, cp. VSS,normotensive, afebrile SVE: 4cm/75%/-1, small amount of bloody show. EFM: Cat I [place]: ctxs every 2-4min; Pitocin 12mU/min A/P: Approaching active labor. Reassuring intrapartum maternal and status. -Continue Pitocin per protocol -Repeat SVE in 2-4 hours or sooner PRN. Elvie Snow DO
[2019-02-02] MEDS ORDERED: EPIDURAL COMMENT XX SCH (19:45)
[2019-02-02] MEDS ORDERED: NALOXONE INJ 0.4 MG/1 ML VIAL (J2310) IV PRN (19:45)
[2019-02-02] MEDS ORDERED: ONDANSETRON 4MG/2ML VIAL (J2405) IV PRN (19:45)
[2019-02-02] MEDS ORDERED: EPIDURAL/PCA KEYS XX PRN (19:45)
[2019-02-02] MEDS ORDERED: ePHEDrine SULFATE 25 MG/5 ML(5MG/ML) SYRINGE IV PRN (19:45)
[2019-02-02] MEDS ORDERED: REFRIGERATOR IV KEYS XX PRN (19:45)
[2019-02-02] MEDS: FENTANYL/ROPIVACAINE/NACL BAG 100 ML EPIDURAL SCH ×2 (19:45→22:26)
[2019-02-02] MEDS ORDERED: diphenhydrAMINE INJ 50MG/ML VIAL (J1200) IV PRN (19:45)
[2019-02-02] MEDS ORDERED: LACTATED RINGER'S 1000 ML IV PRN (19:45)
--- NOTE | 2019-02-02 19:58 | NUR ---
Progress Note Very comfortable. Denies any rectovaginal pressure. No LOF/VB. No PICHARDO, sob, cp. VSS,normotensive, afebrile SVE: 6cm/90%/0, small amount of bloody show. EFM: Cat I [place]: ctxs every 2-4min; Pitocin 14mU/min A/P: Early active labor. Reassuring intrapartum maternal and status. -Continue Pitocin per protocol -Repeat SVE in 2-4 hours or sooner PRN. Elvie Snow DO
--- NOTE | 2019-02-02 22:03 | NUR ---
Progress Note Very comfortable. Denies any rectovaginal pressure. No LOF/VB. No PICHARDO, sob, cp. VSS,normotensive, afebrile SVE: 8cm/90%/+1, small amount of bloody show. AROM,clear fluid EFM: Cat I [place]: ctxs every 2-4min; Pitocin 16mU/min A/P: Active labor. Reassuring intrapartum maternal and status. -Continue Pitocin per protocol -Repeat SVE in 2 hours or sooner PRN. Elvie Snow,
--- NOTE | 2019-02-03 00:03 | NUR ---
Delivery note Spontaneous vaginal delivery Estimated gestational age at delivery: 35+5 weeks The active phase and second stage of labor progressed in normal fashion with epidural anesthesia. Patient received Pitocin labor augmentation. She received a full course of PCN prophylaxis. Cat I predominated throughout labor. The head delivered left occiput anterior and restituted left occiput transverse. A loose nuchal cord was noted. The anterior shoulder delivered with gentle downward guidance and the remainder of the body delivered with ease. The nuchal cord was reduced. Cord clamping was delayed for approximately 1 minute after delivery. After doubly clamping the cord, I allowed the FOB to cut the cord. The was placed on the patient's chest for immediate bonding. [place] data: Apgars 8 and 9. weight 2014 grams 4 pounds, 7 ounces. Time of delivery: 2333. Sex: Male. The third stage of labor was actively managed with a bolus of IV Pitocin (30 units in 500 mL of normal saline). The placenta delivered completely intact with no missing cotyledons at 2339. A three-vessel cord with a central insertion was noted. After delivery of the placenta, the uterine fundus was approximately 2 cm below the umbilicus and firm. IV Pitocin was continued to maintain uterine tone. A normal, low level of uterine bleeding was noted. The cervix, vagina, vulva and perineum were inspected for lacerations. A first degree laceration was noted. This was repaired with 4-0 Vicryl. Excellent hemost asis was noted. Estimated blood loss: 200ml. All sponges, needles, and instruments were accounted for per [employer] department protocol. Willie Snow D.O., F.A.C.Anita.
[2019-02-03] MEDS ORDERED: OXYTOCIN DRIP 30 UNITS in APPROPRIATE DILUENT 1 EA IV SCH (00:08)
[2019-02-03] MEDS: LR 1,000 ML IV SCH ×3 (00:08→16:08)
[2019-02-03] MEDS ORDERED: MEASLES,MUMPS,RUBELLA VACCINE INJ (MMR-II) (90707) SC SCH (00:15)
[2019-02-03] MEDS ORDERED: DIBUCAINE 1% OINTMENT 30GM TOP PRN (00:15)
[2019-02-03] MEDS ORDERED: PROMETHAZINE 25 MG TAB PO PRN (00:15)
[2019-02-03] MEDS ORDERED: DOCUSATE SODIUM 100 MG CAP PO PRN (00:15)
[2019-02-03] MEDS ORDERED: RHOGAM 300 MCG (1500 IU) INJ (J2790) IM SCH (00:15)
[2019-02-03] MEDS ORDERED: ONDANSETRON 4MG/2ML VIAL (J2405) IV PRN (00:15)
[2019-02-03 00:25] VITALS: BP 128/68
[2019-02-03 02:30] VITALS: BP 119/67
[2019-02-03] MEDS: KETOROLAC 30 MG/ML VIAL (J1885) IV SCH ×4 (03:36→21:22)
[2019-02-03] MEDS: ACETAMINOPHEN 500 MG TAB PO PRN ×3 (06:20→18:18)
--- NOTE | 2019-02-03 06:24 | NUR ---
Day 1 Status post , uncomplicated Subjective Pain is well controlled. Lochia decreasing and minimal. Voiding spontaneously. Tolerating a regular diet. Ambulating without any assistance. Denies any subjective fever/chills/nausea/vomiting/headache/visual changes/shortness of breath/chest pain. Objective Vitals: Normotensive, normal heart rate, afebrile, adequate urine output. Heart: regular, rate, and rhythm. no murmurs/gallops/rubs Lungs: clear to auscultation bilaterally, no wheezes/crackles/rales/ronchi Abd: soft, nontender, nondistended, uterine fundus is 2cm below umbilicus and firm Ext: no significant edema, nontender, negative Jb's bilaterally. Assessment/Plan: day 1. Recovering well. Hemodynamically stable, afebrile, good pain control. -Routine care; Toradol for first 24 hours, followed by Motrin. -Discharge to home tomorrow. -Routine infectious, fever, pain, and bleeding precautions reviewed Dr. Willie Snow D.O., F.A.C.O.G.
[2019-02-03 06:32] VITALS: BP 121/64
[2019-02-03] MEDS: PRENATAL VITAMINS CHEWABLE TABLET PO SCH (08:56)
[2019-02-03 18:32] VITALS: BP 127/67
[2019-02-04] MEDS: ACETAMINOPHEN 500 MG TAB PO PRN ×2 (01:27→08:05)
[2019-02-04] MEDS: IBUPROFEN 800 MG TAB PO SCH ×2 (05:21→13:40)
[2019-02-04 06:24] VITALS: BP 116/70
[2019-02-04] MEDS: PRENATAL VITAMINS CHEWABLE TABLET PO SCH (08:05)
[2019-02-04] MEDS: LR 1,000 ML IV SCH (08:08)
[2019-02-04] MEDS ORDERED: IBUP-1114 PO (09:57)
[2019-02-04] MEDS ORDERED: MAPA500T2 PO (09:57)
== END 2019-02-04 14:30 | disposition home or self-care (01) | DRG 560 ==
LOC: M LDI 06:55 → M OBS 02-03 02:30
PROVIDERS: ADMIT Obstetrics & Gynecology; ATTEND Obstetrics & Gynecology
PROC: 3E033VJ Introduction of Other Hormone into Peripheral Vein, Percutaneous Approach (ICD-10-PCS; 2019-02-02)
PROC: 10E0XZZ Delivery of Products of Conception, External Approach (ICD-10-PCS; principal; 2019-02-03)
PROC: 0HQ9XZZ Repair Perineum Skin, External Approach (ICD-10-PCS; 2019-02-03)
DX: O36.5930 Maternal care for other known or suspected poor fetal growth, third trimester, not applicable or unspecified (principal); O69.82X0 Labor and delivery complicated by other cord entanglement, without compression, not applicable or unspecified; Z37.0 Single live birth; Z3A.35 35 weeks gestation of pregnancy; O70.0 First degree perineal laceration during delivery

== ENCOUNTER → 2022-09-23 | Outpatient (CLI) | payer BC ==
[~2022-09-23] MED LIST changes: +FERR325T82 PO; +MAPA500T2 PO; +PROB250C PO; +VITA1TAB9 PO
[2022-09-23 14:00] LABS: HEMATOCRIT 38.9 % (36.0-47.0); HEMOGLOBIN 12.9 g/dl (12.0-15.5); MEAN CORPUSCULAR HEMOGLOBIN 30.2 pg (27.0-33.0); MEAN CORPUSCULAR HGB CONC 33.2 g/dl (32.0-36.5); MEAN CORPUSCULAR VOLUME 91.1 fl (80.0-96.0); PLATELET COUNT, AUTOMATED 313 10^3/uL (150-450); RED BLOOD COUNT 4.27 10^6/uL (4.00-5.40); WHITE BLOOD COUNT 9.7 10^3/uL (4.0-10.0)
[2022-09-23 15:49] LABS: HEPATITIS C VIRUS ABY INDEX < 0.0 INDEX (<0.8); HIV 1&2 SCREEN CENTAUR NEGATIVE (NEGATIVE)
[2022-09-23 15:55] LABS: GC DNA AMPLIFICATION NEGATIVE (NEGATIVE)
== END ==
LOC: M PLALAB 12:02
PROVIDERS: ATTEND Obstetrics & Gynecology
DX: Z34.81 Encounter for supervision of other normal pregnancy, first trimester (principal)

== ENCOUNTER → 2022-11-18 | Outpatient (CLI) | payer BC, OTHER | LOC: M WHC 09:53 | PROVIDERS: ATTEND Obstetrics & Gynecology | DX: Z34.92 Encounter for supervision of normal pregnancy, unspecified, second trimester (principal); Z3A.20 20 weeks gestation of pregnancy ==

== ENCOUNTER → 2023-02-24 | Outpatient (REF) | payer BC ==
[2023-02-24 18:38] LABS: APPEARANCE, URINE CLEAR (CLEAR); BACTERIA, URINE AUTO NEGATIVE (NEGATIVE); BILIRUBIN, URINE AUTO NEGATIVE (NEGATIVE); BLOOD, URINE BLOOD NEGATIVE (NEGATIVE); COLOR, URINE YELLOW (YELLOW); GLUCOSE, URINE (UA) AUTO NEGATIVE (NEGATIVE); KETONE, URINE AUTO NEGATIVE (NEGATIVE); LEUKOCYTE ESTERASE, URINE AUTO NEGATIVE (NEGATIVE); NITRITE, URINE AUTO NEGATIVE (NEGATIVE); PROTEIN, URINE AUTO NEGATIVE (NEGATIVE); RBC, URINE AUTO 0 /HPF (0-3); SPECIFIC GRAVITY URINE AUTO 1.016 (1.002-1.035); SQUAMOUS EPITHELIAL CELL UR AU 1 /HPF (0-6); UROBILINOGEN, URINE AUTO 0.2 mg/dL (0.0-2.0); WBC, URINE AUTO 0 /HPF (0-3)
== END ==
LOC: M SFHCWAGY 17:14
PROVIDERS: ATTEND Obstetrics & Gynecology
DX: N93.9 Abnormal uterine and vaginal bleeding, unspecified (principal)

== ENCOUNTER → 2023-03-05 | Outpatient (CLI) | payer BC | LOC: M WHC 10:51 | PROVIDERS: ATTEND Obstetrics & Gynecology | DX: O36.5993 Maternal care for other known or suspected poor fetal growth, unspecified trimester, fetus 3 (principal); Z3A.35 35 weeks gestation of pregnancy ==

== ENCOUNTER → 2023-03-11 | Outpatient (REF) | payer BC | LOC: M PLALAB 16:04 | PROVIDERS: ATTEND Obstetrics & Gynecology | DX: Z36.89 Encounter for other specified antenatal screening (principal); Z3A.36 36 weeks gestation of pregnancy ==

== ENCOUNTER → 2023-03-12 | Outpatient (CLI) | payer BC | LOC: M WHC 08:55 | PROVIDERS: ATTEND Obstetrics & Gynecology | DX: O36.5993 Maternal care for other known or suspected poor fetal growth, unspecified trimester, fetus 3 (principal); Z3A.36 36 weeks gestation of pregnancy ==

== ENCOUNTER → 2023-03-20 | Outpatient (CLI) | payer BC ==
[~2023-03-20] MED LIST changes: +LEXA5TAB13 PO
== END ==
LOC: M WHC 14:50
PROVIDERS: ATTEND Obstetrics & Gynecology
DX: O26.849 Uterine size-date discrepancy, unspecified trimester (principal); Z3A.37 37 weeks gestation of pregnancy

== ENCOUNTER → 2024-09-02 | Outpatient (CLI) | payer BC ==
[2024-09-02 13:19] LABS: HEMATOCRIT 38.9 % (36.0-47.0); MEAN CORPUSCULAR HEMOGLOBIN 30.2 pg (27.0-33.0); MEAN CORPUSCULAR HGB CONC 33.4 g/dl (32.0-36.5); MEAN CORPUSCULAR VOLUME 90.3 fl (80.0-96.0); PLATELET COUNT, AUTOMATED 342 10^3/uL (150-450); RED BLOOD COUNT 4.31 10^6/uL (4.00-5.40); WHITE BLOOD COUNT 7.4 10^3/uL (4.0-10.0)
[2024-09-02 14:12] LABS: HIV 1&2 SCREEN NEGATIVE (NEGATIVE)
[2024-09-02 14:21] LABS: HEPATITIS C VIRUS ABY INDEX 0.03 INDEX (<0.8)
[2024-09-02 14:50] LABS: GC DNA AMPLIFICATION NEGATIVE (NEGATIVE)
== END ==
LOC: M PLALAB 09:44
PROVIDERS: ATTEND Specialist
DX: Z34.81 Encounter for supervision of other normal pregnancy, first trimester (principal)

== ENCOUNTER → 2024-10-06 | Outpatient (CLI) | payer BC | LOC: M RAD 09:46 | PROVIDERS: ATTEND Specialist | DX: O44.42 Low lying placenta NOS or without hemorrhage, second trimester (principal); Z3A.20 20 weeks gestation of pregnancy ==

== ENCOUNTER → 2024-11-11 | Outpatient (CLI) | payer BC ==
[2024-11-11 17:51] LABS: HEMATOCRIT 38.9 % (36.0-47.0); HEMOGLOBIN 12.9 g/dl (12.0-15.5); MEAN CORPUSCULAR HEMOGLOBIN 30.6 pg (27.0-33.0); MEAN CORPUSCULAR HGB CONC 33.2 g/dl (32.0-36.5); MEAN CORPUSCULAR VOLUME 92.4 fl (80.0-96.0); PLATELET COUNT, AUTOMATED 289 10^3/uL (150-450); RED BLOOD COUNT 4.21 10^6/uL (4.00-5.40); WHITE BLOOD COUNT 9.7 10^3/uL (4.0-10.0)
[2024-11-11 18:06] LABS: GLUCOSE CHALLENGE TEST 1 HOUR 141 MG/DL (LESS THAN 140)
[2024-11-11 18:37] LABS: HIV 1&2 SCREEN NEGATIVE (NEGATIVE)
[2024-11-11 18:44] LABS: HEPATITIS C VIRUS ABY INDEX 0.03 INDEX (<0.8)
[2024-11-11 20:02] LABS: GC DNA AMPLIFICATION NEGATIVE (NEGATIVE)
== END ==
LOC: M PLALAB 13:48
PROVIDERS: ATTEND Obstetrics & Gynecology
DX: Z34.82 Encounter for supervision of other normal pregnancy, second trimester (principal)

== ENCOUNTER → 2024-12-22 | Outpatient (CLI) | payer BC | LOC: M WHC 10:24 | PROVIDERS: ATTEND Nurse Practitioner Family | DX: O44.42 Low lying placenta NOS or without hemorrhage, second trimester (principal); Z3A.32 32 weeks gestation of pregnancy ==

== ENCOUNTER → 2025-01-06 | Outpatient (CLI) | payer BC ==
[2025-01-07 08:09] LABS: RUBELLA IgG FOR TORCH EVAL <0.90 index (Immune >0.99); RUBELLA IgM FOR TORCH EVAL <20.0 AU/mL (0.0-19.9); TOXOPLASMA IgG ABY <3.0 IU/mL (0.0-7.1)
[2025-01-07 13:52] LABS: HSV 1 IGG TYPE SPECIFIC < 0.90 index (<0.90); HSV 2 IGG TYPE SPECIFIC < 0.90 index (<0.90)
[2025-01-07 14:07] LABS: CYTOMEGALOVIRUS IgM ANTIBODY < 30.00 AU/mL (<30.00)
== END ==
LOC: M PLALAB 09:50
PROVIDERS: ATTEND Nurse Practitioner Family
DX: O36.5930 Maternal care for other known or suspected poor fetal growth, third trimester, not applicable or unspecified (principal); Z3A.00 Weeks of gestation of pregnancy not specified

== ENCOUNTER → 2025-01-20 | Outpatient (REF) | payer BC | LOC: M SFHCWAGY 12:24 | PROVIDERS: ATTEND Obstetrics & Gynecology | DX: Z36.85 Encounter for antenatal screening for Streptococcus B (principal); Z3A.36 36 weeks gestation of pregnancy ==

== ENCOUNTER 2025-01-27 08:09 | Inpatient (IN) | payer BC ==
[~2025-01-27] VITALS: Ht 162.6 cm; Wt 64.4 kg
[2025-01-27] VITALS (12 sets, daily range): BP systolic 115–141; BP diastolic 71–84
[2025-01-27 08:57] LABS: HEMATOCRIT 35.5 % (36.0-47.0); HEMOGLOBIN 12.1 g/dl (12.0-15.5); MEAN CORPUSCULAR HEMOGLOBIN 30.4 pg (27.0-33.0); MEAN CORPUSCULAR HGB CONC 34.1 g/dl (32.0-36.5); MEAN CORPUSCULAR VOLUME 89.2 fl (80.0-96.0); PLATELET COUNT, AUTOMATED 258 10^3/uL (150-450); RED BLOOD COUNT 3.98 10^6/uL (4.00-5.40); WHITE BLOOD COUNT 8.7 10^3/uL (4.0-10.0)
[2025-01-27] MEDS ORDERED: OXYTOCIN DRIP 30 UNITS in IV 1 EA IV PRN ×2 (09:00→22:20)
[2025-01-27] MEDS: miSOPROStol 50MCG 1/2 TABLET PO SCH (09:23)
[2025-01-27 09:55] LABS: HIV 1&2 SCREEN NEGATIVE (NEGATIVE)
[2025-01-27] MEDS: ESCITALOPRAM OXALATE 5MG TABLET (LEXAPRO) PO SCH (21:31)
[2025-01-27] MEDS ORDERED: PILL CUTTER 1 EACH XX PRN (21:35)
[2025-01-27] MEDS ORDERED: OXYTOCIN INJ 10UNITS/ML 1ML VIAL IM PRN (22:20)
[2025-01-27] MEDS ORDERED: TRANEXAMIC ACID INJection 1,000 MG in NS 100 ML IV PRN (22:20)
[2025-01-27] MEDS ORDERED: CARBOPROST TROMETHAMINE 250 MCG/ML AMP IM PRN (22:20)
[2025-01-27] MEDS ORDERED: METHYLERGONOVINE MALEATE 0.2MG/ML 1ML VIAL IM PRN (22:20)
[2025-01-27] MEDS: OXYTOCIN DRIP 30 UNITS in IV 1 EA IV SCH (22:44)
[2025-01-27] MEDS: LR 1,000 ML IV SCH (22:45)
[2025-01-27] MEDS ORDERED: diphenhydrAMINE 50MG/ML VIAL IV PRN (23:45)
[2025-01-27] MEDS ORDERED: ONDANSETRON 4MG 2ML VIAL IV PRN (23:45)
[2025-01-27] MEDS ORDERED: EPIDURAL/PCA KEYS XX PRN (23:45)
[2025-01-27] MEDS ORDERED: LR 500 ML IV PRN (23:45)
[2025-01-27] MEDS ORDERED: NALOXONE INJ 0.4MG/1ML VIAL IV PRN (23:45)
[2025-01-27] MEDS ORDERED: ePHEDrine SULFATE 25 MG/5 ML(5MG/ML) SYRINGE IVP PRN (23:45)
[2025-01-27] MEDS: FENTANYL/ROPIVACAINE/NACL BAG 100 ML EPIDURAL SCH (23:51)
[2025-01-28] VITALS (30 sets, daily range): BP systolic 111–139; BP diastolic 56–82; O2SAT 98–99
[2025-01-28] MEDS: OXYTOCIN DRIP 30 UNITS in IV 1 EA IV SCH (05:01)
[2025-01-28] MEDS ORDERED: RHOGAM 300MCG (1500IU) INJ IM SCH (05:15)
[2025-01-28] MEDS ORDERED: DIBUCAINE 1% OINTMENT 30GM TOP PRN (05:15)
[2025-01-28] MEDS ORDERED: ANUSOL HC CREAM 30GM TOP PRN (05:15)
[2025-01-28] MEDS ORDERED: CALCIUM CARBONATE 500 MG CHEW U/D PO PRN (05:15)
[2025-01-28] MEDS ORDERED: ACETAMINOPHEN 500 MG TAB PO PRN (05:15)
[2025-01-28] MEDS ORDERED: METHYLERGONOVINE MALEATE 0.2 MG TAB PO PRN (05:15)
[2025-01-28] MEDS ORDERED: MOM 30ML SUSPENSION UDC PO PRN (05:15)
[2025-01-28] MEDS ORDERED: ACETAMINOPHEN 325 MG TAB PO PRN (05:15)
[2025-01-28] MEDS ORDERED: DOCUSATE SODIUM 100MG CAPSULE PO PRN (05:15)
[2025-01-28] MEDS: KETOROLAC 30 MG/ML 1ML VIAL IV SCH (07:06)
[2025-01-28] MEDS: PRENATAL VITAMINS CHEWABLE TABLET PO SCH (09:00)
[2025-01-29 05:31] VITALS: BP 133/75; O2SAT 97
[2025-01-29] MEDS: IBUPROFEN 800 MG TAB PO SCH (08:26)
[2025-01-29 18:00] VITALS: BP 120/76; O2SAT 98
[2025-01-29] MEDS ORDERED: ACET-683 PO (18:17)
[2025-01-29] MEDS ORDERED: IBUP80TA PO (18:17)
[2025-01-30] MEDS ORDERED: MEASLES,MUMPS,RUBELLA VACCINE INJ (MMR-II) SC.IMMUN ONE (09:00)
== END 2025-01-29 19:00 | disposition home or self-care (01) | DRG 560 ==
LOC: M LDI 08:09 → M OBS 01-28 08:39
PROVIDERS: ADMIT Obstetrics & Gynecology; ATTEND Obstetrics & Gynecology
PROC: 3E0P7GC Introduction of Other Therapeutic Substance into Female Reproductive, Via Natural or Artificial Opening (ICD-10-PCS; 2025-01-27)
PROC: 10E0XZZ Delivery of Products of Conception, External Approach (ICD-10-PCS; principal; 2025-01-28)
DX: O36.5930 Maternal care for other known or suspected poor fetal growth, third trimester, not applicable or unspecified (principal); Z37.0 Single live birth; Z3A.37 37 weeks gestation of pregnancy